=== PATIENT | female | born 1990 | race Caucasian/White ===

== ENCOUNTER 2022-11-30 15:18 | Emergency (ER) | payer BC, SELFPAY ==
--- NOTE | 2022-11-30 15:18 | ECG_ITS ---
APPROVED REPORT Exam: Resting ECG HR:79 bpm ECG Measurements Heart Rate 79 AXES UT 153 P 71 QRSd 81 QRS 71 QT 359 T 33 QTc 393 Conclusion SINUS RHYTHM POSSIBLE LEFT ATRIAL ENLARGEMENT [-0.1mV P-WAVE IN V1/V2] NONSPECIFIC T-WAVE ABNORMALITY BORDERLINE ECG UNCONFIRMED REPORT Electronically signed by : Eze Rodriguez MD 12/01/2022 21:27:29
[2022-11-30 15:20] VITALS: BP 118/72; PULSE 75; RESP 17; TEMP 36.6; O2SAT 98; BMI 17.4
[2022-11-30 15:30] VITALS: BP 100/70
--- NOTE | 2022-11-30 15:30 | HMH.EDGENADL ---
Discharge Plan Disposition Patient Disposition: Home, Self-Care Prescriptions Prescriptions: New hydroxyzine pamoate [Vistaril] 25 mg capsule 25 mg PO Q6H PRN (Reason: anxiety) Qty: 30 0RF Referrals Follow up/Referrals: Anne Blair MD [Primary Care Provider] - See instructions Activity Restrictions/Add. Instructions Additional Instructions/Restrictions: Call your family doctor to establish care for this visit to the emergency department and schedule follow-up within 48 hours to ensure improvement. If you have any worsening of your condition or any other concerning signs or symptoms, return to the emergency department or your primary care doctor for further evaluation. 1-2 Vistaril every 6 hours as needed for anxiety. Can make you sleepy, so be aware and do not engage in activities and cause harm to you or others after taking. Clinical Impressions Clinical Impression: Palpitations, Chest pain Discharge ED Provider: Akash Segura General Adult HPI General Stated complaint: Chest Pain Time Seen by Provider: 11/30/22 15:23 History of Present Illness HPI narrative: 32-year-old female history of palpitations and panic attacks currently on metoprolol presenting with palpitations and chest pain. Patient states that symptoms happened 1 night prior to arrival on 11/29. Patient was sitting in her workplace when she started having palpitations. This turned into chest pain that did not radiate, substernal. This caused patient to hit my knees and my hands and arms mariana up. Denies nausea, vomiting, diaphoresis, or any other concerns. Has cardiology appointment in January. Related Data Previous Rx's Medication Instructions Recorded hydroxyzine pamoate 25 mg capsule 25 mg PO Q6H PRN anxiety #30 caps 11/30/22 (Vistaril) Allergies Allergy/AdvReac Type Severity Reaction Status Date / Time No Known Allergies Allergy Verified 11/30/22 16:36 [facility] Disclaimer: The information contained in this section may have been updated after the patient was seen, as this information can be updated by other users. Social History Smoking Status: Unknown if ever smoked alcohol intake: never current occupational status: employed Travel in the last 8 weeks: None ROS Obtained: Yes All systems reviewed & no additional complaints except as documented Physical Exam General General appearance: alert and in no apparent distress Head Head exam: atraumatic and normocephalic Eye Eye exam: Present normal appearance, PERRL and EOMI ENT ENT exam: Present mucous membranes moist Neck Neck exam: Present normal inspection, full ROM and trachea midline Respiratory Respiratory exam: Present normal lung sounds bilaterally; Absent respiratory distress, wheezes, stridor, accessory muscle use or prolonged expiratory phase Cardiovascular Cardiovascular exam: Present regular rate and normal rhythm Abdominal Exam Abdominal exam: Present soft; Absent distention, tenderness, guarding, rebound, rigidity or normal bowel sounds Extremities Exam Extremities exam: Absent edema Neurological Exam Neurological exam: Present alert, oriented X3, CN II-XII intact and normal gait; Absent motor sensory deficit Skin Skin exam: Present warm and dry; Absent diaphoresis or erythema Medical Decision Making Medical Records Medical records reviewed: Yes I reviewed the patient's medical records. Nguyễn Inquiry Pt receiving controlled substance: No Nguyễn was queried for this patient: No Lab Data Lab Results 11/30/22 15:20: WBC 5.3, RBC 4.33, Hgb 14.3, Hct 40.0, MCV 92.4, MCH 33.0 H, MCHC 35.7 H, RDW 12.7, Plt Count 186, MPV 8.2, Neut % (Auto) 57.7, Lymph % (Auto) 32.8, [place] % (Auto) 5.2, Eos % (Auto) 3.2, Baso % (Auto) 1.0, Neut # (Auto) 3.0, Lymph # (Auto) 1.7, [place] # (Auto) 0.3, Eos # (Auto) 0.2, Baso # (Auto) 0.1, Sodium 139, Potassium 3.8, Chloride 106, Carbon Dioxide 26, Anion Gap 10.8, BUN 11, Creatinine 0.60, Estimated GFR 117, Est GFR
[2022-11-30 15:41] LABS: Basophils # 0.1 K/mm3 (0-0.2); Eosinophils # 0.2 K/mm3 (0.0-0.4); Eosinophils % 3.2 % (0.1-12.0); Hemoglobin 14.3 g/dL (12.2-16.2); Lymphocytes # 1.7 K/mm3 (0.7-4.5); Lymphocytes % 32.8 % (10-50); Mean Corpuscular HGB Conc 35.7 g/dL (31.8-35.4); Mean Corpuscular Volume 92.4 fl (81-99); Mean Platelet Volume 8.2 fl (7.4-10.4); Monocytes # 0.3 K/mm3 (0.1-1.0); Monocytes % 5.2 % (1.7-9.3); Neutrophils % 57.7 % (37.0-80.0); Platelet Count 186 K/mm3 (142-424); Red Blood Count 4.33 M/mm3 (4.20-5.40); Red Cell Distribution Width 12.7 % (11.5-17.5); White Blood Count 5.3 K/mm3 (4.8-10.8)
[2022-11-30 15:44] LABS: Chloride 106 mmol/L (98-107); Potassium 3.8 mmoL/L (3.5-5.1); Sodium 139 mmol/L (136-145)
[2022-11-30 15:47] LABS: Alanine Aminotransferase 18 U/L (12-78); Albumin Level 4.5 g/dl (3.5-5.0); Albumin/Globulin Ratio 1.7 (1.1-1.8); Alkaline Phosphatase 61 U/L (38-126); Anion Gap 10.8 mEq/L (5-15); Aspartate Amino Transferase 27 U/L (14-36); Bilirubin,Total 0.5 mg/dl (0.2-1.3); Blood Urea Nitrogen 11 mg/dl (7-17); Calcium 8.7 mg/dl (8.4-10.2); Carbon Dioxide 26 mmol/L (22.0-30.0); Estimated Glomerular Filt Rate 117 ml/min (>60); GFR (African American) 142 ML/MIN (>60); Globulin 2.7 g/dL (1.3-3.2); Glucose 106 mg/dl (74-100); Total Protein,Serum 7.2 g/dl (6.3-8.2)
[2022-11-30 16:00] VITALS: BP 96/65
[2022-11-30 16:04] LABS: Troponin I < 0.01 ng/ml (0.00-0.034)
[2022-11-30 16:06] LABS: HCG,Quantitative < 2 mIU/ml (0-5.42); T4 (Thyroxine) 7.8 ug/dl (5.53-11.0)
[2022-11-30 16:18] LABS: Thyroid Stimulating Hormone 0.73 uIU/mL (0.465-4.68)
[2022-11-30 16:30] VITALS: BP 97/64; PULSE 77; RESP 19; O2SAT 99
[2022-11-30 16:44] VITALS: PULSE 75
[2022-11-30 16:56] VITALS: BP 99/64; PULSE 78; RESP 17; TEMP 36.6; O2SAT 98
== END 2022-11-30 16:57 | disposition home or self-care (01) ==
PROVIDERS: Emergency Provider Emergency Medicine; PCP Family Medicine
DX: R07.9 Chest pain, unspecified (principal); R00.2 Palpitations; F41.1 Generalized anxiety disorder
CPT/HCPCS: 80053; 84436; 84443; 84484; 84702; 85025; 93005; 99283

== ENCOUNTER 2023-03-08 11:25 | Emergency (ER) | payer BC, SELFPAY ==
[2023-03-08 12:00] VITALS: BP 127/68; PULSE 112; RESP 18; TEMP 37.7; O2SAT 98; BMI 19.5
--- NOTE | 2023-03-08 12:07 | EXP.UTC ---
Discharge Plan Disposition Patient Disposition: Home, Self-Care Condition: Good Prescriptions Prescriptions: New oseltamivir [Tamiflu] 75 mg capsule 75 mg PO BID Qty: 10 0RF ondansetron 4 mg Tablet,Disintegrating 4 mg PO Q8H PRN (Reason: Nausea) Qty: 12 0RF benzonatate [benzonatate] 100 mg capsule 100 mg PO TIDP PRN (Reason: Cough) Qty: 30 0RF No Action metoprolol succinate 25 mg tablet extended release 24 hr 25 mg PO DAILY Patient Comments: TAKE 1 TABLET BY MOUTH ONCE DAILY Referrals Follow up/Referrals: Anne Blair MD [Primary Care Provider] - See instructions Activity Restrictions/Add. Instructions Additional Instructions/Restrictions: Drink plenty of fluids. Take tylenol or ibuprofen for pain or fever. Take the medications as directed. Follow up with your regular doctor. GO TO THE ER FOR ANY WORSENING SYMPTOMS Clinical Impressions Clinical Impression: Influenza B Stand Alone Forms Stand Alone Forms: Work/School Release Instructions Patient Instructions: DI for Influenza -- Adult, Ondansetron, Oseltamivir Discharge ED Provider: Osman Ivey [facility] General Stated complaint: cough, fever, nausea, diarrea, body aches, fermín Time Seen by Provider: 03/08/23 12:07 History of Present Illness Provider Complaint: She states that for the past 2 days she has had fever, chills, body aches, malaise, sore throat, nausea and a dry cough. Her tested positive for influenza b about 5 days ago. Related Data Home Medications Medication Instructions Recorded Confirmed metoprolol succinate 25 mg 25 mg PO DAILY 03/08/23 03/08/23 tablet,extended release 24 hr Previous Rx's Medication Instructions Recorded benzonatate 100 mg capsule 100 mg PO TIDP PRN Cough #30 caps 03/08/23 ondansetron 4 mg disintegrating 4 mg PO Q8H PRN Nausea #12 tabs 03/08/23 tablet oseltamivir 75 mg capsule (Tamiflu) 75 mg PO BID #10 caps 03/08/23 Allergies Allergy/AdvReac Type Severity Reaction Status Date / Time No Known Allergies Allergy Verified 03/08/23 12:19 [facility] Disclaimer: The information contained in this section may have been updated after the patient was seen, as this information can be updated by other users. Social History Smoking Status: Unknown if ever smoked alcohol intake: never current occupational status: employed Travel in the last 8 weeks: None ROS Obtained: Yes All systems reviewed & no additional complaints except as documented Constitutional Constitutional: Reports chills and Reports fever(s) Eyes Eyes: Denies eye discharge ENT Ears, Nose, Mouth, and Throat: Reports as per HPI Cardiovascular Cardiovascular: Denies chest pain Respiratory Respiratory: Denies chest congestion and Reports cough Gastrointestinal Gastrointestingal: Reports nausea; Denies abdominal pain, constipation, cramping, diarrhea or vomiting Musculoskeletal Musculoskeletal: Denies arthralgias Integumentary/Breasts Skin/Breast: Denies rash Neurologic Neurologic: Denies paresthesias Physical Exam General General appearance: alert and in no apparent distress Head Head exam: atraumatic, normocephalic and normal inspection Eye Eye exam: Present normal appearance, PERRL and EOMI ENT ENT exam: Present normal exam, normal oropharynx, mucous membranes moist, TM's normal bilaterally and normal external ear exam Neck Neck exam: Present normal inspection, full ROM and trachea midline; Absent meningismus or lymphadenopathy Chest Chest inspection: Present normal inspection and symmetric chest wall rise; Absent tenderness Respiratory Respiratory exam: Present normal lung sounds bilaterally; Absent respiratory distress Cardiovascular Cardiovascular exam: Present regular rate and normal rhythm; Absent JVD Abdominal Exam Abdominal exam: Present soft and normal bowel sounds; Absent distention, tenderness or guarding Extremities Exam Extremities exam: Present normal inspection, full ROM and normal capillary refill; Absent calf tenderness Back Exam Back exam: Present normal inspection; Absent tenderness Neurological Exam Neurological exam: Present alert and oriented X3 Psychiatric Psychiatric exam: Present normal affect and normal mood Skin Skin exam: Present warm, dry, intact and normal color Lymphatic Lymphatic Findings: no adenopathy Medical Decision Making Medical Records Medical records reviewed: No I reviewed the patient's medical records. Nguyễn Inquiry Pt receiving controlled substance: No Lab Data Lab results reviewed: Yes I reviewed the patient's lab results.
[2023-03-08 12:24] LABS: UTC Influenza A Antigen Negative (Negative)
[2023-03-08 12:25] LABS: UTC Influenza B Antigen Positive (Negative)
[2023-03-08 12:37] VITALS: BP 127/68; PULSE 112; RESP 18; TEMP 37.7; O2SAT 98
== END 2023-03-08 12:37 | disposition home or self-care (01) ==
PROVIDERS: Emergency Provider Nurse Practitioner Family; PCP Family Medicine
DX: J10.1 Influenza due to other identified influenza virus with other respiratory manifestations (principal); R50.9 Fever, unspecified; R05.9 Cough, unspecified; R11.0 Nausea; R19.7 Diarrhea, unspecified; M79.18 Myalgia, other site; R53.81 Other malaise
CPT/HCPCS: 87804; 99204; 99212; G0463

== ENCOUNTER 2023-03-16 14:39 | Emergency (ER) | payer BC, SELFPAY ==
[2023-03-16 15:50] VITALS: BP 117/76; PULSE 94; RESP 18; TEMP 36.8; O2SAT 99; BMI 17.7
--- NOTE | 2023-03-16 16:00 | EXP.UTC ---
Discharge Plan Disposition Patient Disposition: Home, Self-Care Condition: Good Prescriptions Prescriptions: New azithromycin [Zithromax Z-Arthur] 250 mg tablet See Rx Instructions .ROUTE .COMPLEX 5 Days Qty: 6 0RF Rx Instructions: For 250 mg dose pack: take 500 mg today (day 1), then 250 mg for 4 days (days 2-5) guaifenesin [Mucinex] 600 mg tablet extended release 12hr 600 mg PO BID PRN (Reason: cough) Qty: 20 0RF No Action metoprolol succinate 25 mg tablet extended release 24 hr 25 mg PO DAILY Patient Comments: TAKE 1 TABLET BY MOUTH ONCE DAILY Referrals Follow up/Referrals: Provider,Referral, MD [Primary Care Provider] - See instructions Activity Restrictions/Add. Instructions Additional Instructions/Restrictions: *Monitor Temp, Over the counter Motrin or Tylenol as directed/as needed Tylenol every 4 hours and Motrin every 6 hours (as long as your family doctor has told you that you can take it) for fever or pain. and straight to ER if unable to lower temp less than 101.0 after medication given *Warm salt water gargles may help to soothe the throat *Throat Lozenges? *Warm fluids like tea with honey may help to soothe the throat? *Sleep elevated *Humidifier/Vaporizer Your throat swab was sent for culture. Those results are typically sent to your primary care. Be sure to follow up in 2-3 days with your family doctor/primary care physician if no improvement so they can review those result and treat if necessary. If you don?t have a primary care doctor, I recommend you get one but in the mean time, you will have to return to a walk in clinic Follow up IMMEDIATELY for new or worsening symptoms or no Noticeable improvement over the next 48-72 hours. 911 for difficulty breathing or swallowing Clinical Impressions Clinical Impression: Sinusitis Qualifiers: Sinusitis location: unspecified location Chronicity: unspecified Qualified Code(s): J32.9 - Chronic sinusitis, unspecified Instructions Patient Instructions: DI for Sinusitis, Sinusitis, Cough Discharge ED Provider: Bethanie Gongora [facility] General Stated complaint: sore throat, congestion Time Seen by Provider: 03/16/23 16:00 History of Present Illness Provider Complaint: Patient states that a week or so ago she had the flu States she got better but now she has been having sinus congestion and pressure, cough that is productive at times, sore throat and headache states that today she wasnt feeling any better so she came in Related Data Home Medications Medication Instructions Recorded Confirmed metoprolol succinate 25 mg 25 mg PO DAILY 03/08/23 03/16/23 tablet,extended release 24 hr Previous Rx's Medication Instructions Recorded azithromycin 250 mg tablet See Rx Instructions PO .COMPLEX 5 03/16/23 (Zithromax Z-Arthur) days #6 tabs guaifenesin 600 mg tablet, 600 mg PO BID PRN cough #20 tabs 03/16/23 extended release 12 hr (Mucinex) Allergies Allergy/AdvReac Type Severity Reaction Status Date / Time No Known Allergies Allergy Verified 03/16/23 16:12 [facility] Disclaimer: The information contained in this section may have been updated after the patient was seen, as this information can be updated by other users. Social History Smoking Status: Unknown if ever smoked alcohol intake: never current occupational status: employed Travel in the last 8 weeks: None ROS Obtained: Yes All systems reviewed & no additional complaints except as documented and Yes Systems reviewed as appropriate & no additional complaints except as documented Constitutional Constitutional: Reports system reviewed and no additional complaints, except as documented, Reports as per HPI and Reports headache(s) ENT Ears, Nose, Mouth, and Throat: Reports system reviewed and no additional complaints, except as documented, Reports headache(s), Reports sinus pain, Reports sinus pressure and Reports sore throat Cardiovascular Cardiovascular: Reports system reviewed and no additional complaints, except as documented and Reports as per HPI Respiratory Respiratory: Reports system reviewed and no additional complaints, except as documented, Reports as per HPI and Reports cough Gastrointestinal Gastrointestingal: Reports system reviewed and no additional complaints, except as documented and as per HPI Neurologic Neurologic: Reports headache(s) Physical Exam General General appearance: alert and in no apparent distress ENT ENT exam: Present mucous membranes moist Expanded ENT Exam Nose exam: Present sinus tenderness Throat exam: Present tonsillar erythema Respiratory Respiratory exam: Present normal lung sounds bilaterally; Absent respiratory distress or wheezes Cardiovascular Cardiovascular exam: Present regular rate, normal rhythm and normal heart sounds Abdominal Exam Abdominal exam: Present soft and normal bowel sounds; Absent distention or tenderness Neurological Exam Neurological exam: Present alert, oriented X3 and normal gait Medical Decision Making Nguyễn Inquiry Pt receiving controlled substance: No Nguyễn was queried for this patient: No Lab Data Lab results reviewed: Yes I reviewed the patient's lab results.
[2023-03-16 16:29] LABS: UTC Strep Screen (Rapid) Negative (Negative)
[2023-03-16 16:40] VITALS: BP 117/76; PULSE 94; RESP 18; TEMP 36.8; O2SAT 99
== END 2023-03-16 16:40 | disposition home or self-care (01) ==
PROVIDERS: Emergency Provider Nurse Practitioner
DX: J01.90 Acute sinusitis, unspecified (principal); R05.9 Cough, unspecified; R51.9 Headache, unspecified; R07.0 Pain in throat; R09.81 Nasal congestion
CPT/HCPCS: 87880; 99212; 99214; G0463

== ENCOUNTER 2024-01-11 11:24 | Emergency (ER) | payer BC, SELFPAY ==
[2024-01-11 11:40] VITALS: BP 119/70; PULSE 94; RESP 20; TEMP 37; O2SAT 99; BMI 19.8
--- NOTE | 2024-01-11 12:03 | EXP.UTC ---
Discharge Plan Disposition Patient Disposition: Home, Self-Care Condition: Good Prescriptions Prescriptions: New ciprofloxacin-dexamethasone 0.3-0.1 % drops,suspension 4 drp otic (ear) Q12H 7 Days Qty: 7.5 0RF Referrals Follow up/Referrals: Anne Blair MD [Primary Care Provider] - See instructions Activity Restrictions/Add. Instructions Additional Instructions/Restrictions: Use drops in left ear as directed Over the counter Motrin and/or Tylenol for fever or pain Follow up with ENT for further evaluation and treatment Return if needed Clinical Impressions Clinical Impression: Otitis externa Instructions Patient Instructions: Ciprofloxacin and Dexamethasone Otic Print Language Print Language: Croatian Discharge ED Provider: Bethanie Gongora [facility] HPI General Stated complaint: Pain in both ears Mode of Arrival: Ambulatory Source of Information: Patient Limitations: No Limitations Time Seen by Provider: 01/11/24 12:03 Description of Symptoms (Recalled from Triage Doc. by RN): PATIENT C/O BILATERAL EAR PAIN HEENT Symptoms (Recalled from RN notes): Yes Resp Symptoms (Recalled from RN notes): No Skin Symptoms (Recalled from RN notes): No MS Symptoms (Recalled from RN notes): No Functional Status (Recalled from RN notes): WNL History of Present Illness Provider Complaint: Patient states that she has been having bilateral ear pain States that she feels like the inside of her ear is tender and sore States today her ears was feeling worse so she came in Related Data Previous Rx's ?Medication ?Instructions ?Recorded ciprofloxacin 0.3 %-dexamethasone 4 drp otic (ear) Q12H 7 days #7.5 01/11/24 0.1 % ear drops,suspension mL Allergies Allergy/AdvReac Type Severity Reaction Status Date / Time No Known Allergies Allergy Verified 03/16/23 16:12 Worker's Comp Is this a Worker's Comp case?: No [facility] Disclaimer: The information contained in this section may have been updated after the patient was seen, as this information can be updated by other users. Medical History (Updated 01/11/24 @ 12:09 by Bethanie Gongora APRN) Anemia Depression Anxiety Surgical History (Updated 01/11/24 @ 11:47 by Pati Barker RN) History of tubal ligation History of hysterectomy Social History Smoking Status: Unknown if ever smoked alcohol intake: never current occupational status: employed Travel in the last 8 weeks: None ROS Obtained: Yes All systems reviewed & no additional complaints except as documented and Yes Systems reviewed as appropriate & no additional complaints except as documented Constitutional Constitutional: Reports system reviewed and no additional complaints, except as documented and Reports as per HPI Eyes Eyes: Reports system reviewed and no additional complaints, except as documented and Reports as per HPI ENT Ears, Nose, Mouth, and Throat: Reports system reviewed and no additional complaints, except as documented, Reports as per HPI and Reports otalgia Cardiovascular Cardiovascular: Reports system reviewed and no additional complaints, except as documented and Reports as per HPI Respiratory Respiratory: Reports system reviewed and no additional complaints, except as documented and Reports as per HPI Gastrointestinal Gastrointestingal: Reports system reviewed and no additional complaints, except as documented and as per HPI Genitourinary Female Genitourinary: Reports system reviewed and no additional complaints, except as documented and Reports as per HPI Physical Exam General General appearance: alert and in no apparent distress ENT ENT exam: Present mucous membranes moist Expanded ENT Exam External ear exam: Present pain with movement (left) and external tenderness (left) TM/Canal exam: Right TM: cerumen impaction (coupious amount of wax noted, wax noted in left also) Respiratory Respiratory exam: Present normal lung sounds bilaterally; Absent respiratory distress or wheezes Cardiovascular Cardiovascular exam: Present regular rate, normal rhythm and normal heart sounds Neurological Exam Neurological exam: Present alert, oriented X3 and normal gait Medical Decision Making Medical Records Screening: Per USPSTF and CDC recommendations, given the prevalence of disease in our region, it is our hospital?s policy to screen for HIV and viral Hepatitis for all patients aged 18 and over and those with ongoing risk factors. Nguyễn Inquiry Pt receiving controlled substance: No Nguyễn was queried for this patient: No Vital Signs: 01/11/24 11:40 Temperature 98.6 F Temperature Source Oral Pulse Rate [Left Brachial] 94 H Respiratory Rate 20 Blood Pressure [Left Arm] 119/70 Blood Pressure Mean [Left Arm] 86 Blood Pressure Source [Left Arm] Automatic Cuff Blood Pressure Position [Left Arm] Sitting 02 Sat by Pulse Oximetry 99 Oxygen Delivery Method Room Air
[2024-01-11 12:14] VITALS: BP 119/70; PULSE 94; RESP 20; TEMP 37; O2SAT 99
== END 2024-01-11 12:23 | disposition home or self-care (01) ==
PROVIDERS: Emergency Provider Nurse Practitioner; PCP Family Medicine
DX: H60.93 Unspecified otitis externa, bilateral (principal)
CPT/HCPCS: 99213; G0381

== ENCOUNTER 2024-02-08 11:51 | Emergency (ER) | payer BC, SELFPAY ==
[2024-02-08 11:52] VITALS: BP 111/75; PULSE 81; RESP 18; TEMP 36.8; O2SAT 99; BMI 20.3
--- NOTE | 2024-02-08 11:58 | ECG_ITS ---
APPROVED REPORT Exam: Resting ECG HR:86 bpm ECG Measurements Heart Rate 86 AXES HI 136 P 64 QRSd 94 QRS 49 QT 347 T 11 QTc 390 Conclusion SINUS RHYTHM NONSPECIFIC T-WAVE ABNORMALITY BORDERLINE ECG UNCONFIRMED REPORT Electronically signed by : Osman Ibarra, 02/08/2024 15:34:04
--- NOTE | 2024-02-08 12:07 | ED_ITS ---
<Statement entered by Jamie Ibarra MD - 02/08/24 15:30> I was consulted by the YUN, and we discussed the complexity of the problems being addressed. I approved the treatment and management plan for this patient's care in the emergency department, thus performing a substantive portion of the medical decision making. Jamie Ibarra MD, KORY, FACEP Discharge Plan Disposition Patient Disposition: Home, Self-Care Condition: Good Chief Complaint: Chest Pain Prescriptions Prescriptions: No Action ofloxacin 0.3 % drops 10 drp otic (ear) Q12H 14 Days Qty: 20 0RF Rx Instructions: to left ear as directed Referrals Follow up/Referrals: Anne Blair MD [Primary Care Provider] - See instructions Activity Restrictions/Add. Instructions Additional Instructions/Restrictions: I would suggest taking a ntha-umz-omjoehp magnesium tablet once a day. I have referred you to cardiology. Please call and make an appointment at your convenience. Follow-up with your PCP for no improvement or worsening signs or symptoms or return to the ER as needed. Clinical Impressions Clinical Impression: Postural orthostatic tachycardia syndrome [POTS] Chest pain Qualifiers: Chest pain type: unspecified Qualified Code(s): R07.9 - Chest pain, unspecified Print Language Print Language: Romansh Discharge ED Provider: Jamie Ibarra General Adult HPI General Chief complaint: Chest Pain Stated complaint: chest pain Time Seen by Provider: 02/08/24 12:07 History of Present Illness HPI narrative: Patient presents for evaluation of chest pain. Patient has a known diagnosis of POTS syndrome and follows with Dr. Castañeda at [facility]. She does have intermittent chest pain with associated tachycardia intermittently since her diagnosis. However today patient's episode began while walking and was not related to a change in position. She did note that her heart rate was very fast although she did not count it. Patient also stated that she felt like her fingers were tingling or numb sometime after this started. However it resolved by the time she came to the ER. Patient had been on a beta-bhumi until about 3 months ago and she self discontinued because she was having a heart rate down to the 40s and symptomatic. She has not followed up with cardiology since. She denies any recent illness shortness of breath fever chills hemoptysis hematochezia melena nausea vomit diarrhea. Related Data Previous Rx's ?Medication ?Instructions ?Recorded ofloxacin 0.3 % ear drops 10 drp otic (ear) Q12H 14 days #20 01/11/24 mL Allergies Allergy/AdvReac Type Severity Reaction Status Date / Time No Known Allergies Allergy Verified 03/16/23 16:12 [facility] Disclaimer: The information contained in this section may have been updated after the patient was seen, as this information can be updated by other users. Medical History (Updated 02/08/24 @ 13:06 by SERAFIN Alvarado) Anemia Depression Anxiety Surgical History (Updated 01/11/24 @ 11:47 by Pati Barker RN) History of tubal ligation History of hysterectomy Social History Smoking Status: Never smoker alcohol intake: never current occupational status: employed Travel in the last 8 weeks: None Have you lived/traveled outside US in past 30 days?: No Contact w/someone who lives/traveled outside US past 30 days?: No Exposure to someone with infectious disease in past 14 days?: No Do you have a fever (greater than 100.4 F or 38 C)?: No Have you tested positive for COVID-19: No Exposed to someone with COVID-19 in past 14 days?: No Do you have a sore throat?: No Do you have a cough?: No Do you have any weakness?: No Do you have any diarrhea?: No Are you experiencing any unusual bleeding?: No Do you have any muscle aches/pain?: No Do you have any abdominal pain?: No Are you experiencing loss of taste or smell?: No ROS Obtained: Yes Systems reviewed as appropriate & no additional complaints except as documented Physical Exam General General appearance: alert and in no apparent distress Respiratory Respiratory exam: Present normal lung sounds bilaterally Cardiovascular Cardiovascular exam: Present regular rate Neurological Exam Neurological exam: Present alert and oriented X3 Medical Decision Making Medical Records Medical records reviewed: Yes I reviewed the patient's medical records. Screening: Per USPSTF and CDC recommendations, given the prevalence of disease in our region, it is our hospital?s policy to screen for HIV and viral Hepatitis for all patients aged 18 and over and those with ongoing risk factors. Nguyễn Inquiry Pt receiving controlled substance: No Vital Signs: 02/08/24 11:52 02/08/24 12:30 Temperature 98.3 F Temperature Source Oral Pulse Rate 80 Pulse Rate [Right] 81 Respiratory Rate 18 Blood Pressure 107/65 L Blood Pressure [Right Arm] 111/75 Blood Pressure Mean [Right Arm] 87 02 Sat by Pulse Oximetry 99 98 Oxygen Delivery Method Room Air Lab Data Lab results reviewed: Yes I reviewed the patient's lab results. Lab Results 02/08/24 11:55: WBC 7.6, RBC 4.54, Hgb 14.0, Hct 40.8, MCV 89.9, MCH 30.8, MCHC 34.3, RDW 12.1, Plt Count 239, MPV 10.1, Neut % (Auto) 63.4, Lymph % (Auto) 23.2, Steele % (Auto) 4.7, Eos % (Auto) 7.0, Baso % (Auto) 1.2, Neut # (Auto) 4.8, Lymph # (Auto) 1.8, Steele # (Auto) 0.4, Eos # (Auto) 0.5 H, Baso # (Auto) 0.1, Sodium 138, Potassium 3.6, Chloride 103, Carbon Dioxide 30, Anion Gap 8.6, BUN 15, Creatinine 0.60, Estimated Creat Clear 112, Estimated GFR 117, Est GFR ( Amer) 141, Glucose 73 L, Calcium 9.8, Magnesium 1.8, Total Bilirubin 0.7, AST 28, ALT 14, Alkaline Phosphatase 68, Troponin I < 0.01, Total Protein 7.5, Albumin 4.9, Globulin 2.6, Albumin/Globulin Ratio 1.9 H 02/08/24 12:18: VBG pH 7.31, VBG pCO2 51.0, VBG pO2 28.9, VBG HCO3 24.9, VBG Total CO2 26.4, VBG O2 Saturation 52.0, VBG Base Excess -1.5, VBG Lactic Acid 1.6 02/08/24 11:55 02/08/24 11:55 Orders (Tests/Meds): ORDERS Category Date Time Status CBC w/Auto Diff [Complete Blood Count Auto Diff] Stat Lab 02/08/24 11:55 Completed CMP [Comprehensive Metabolic Panel] Stat Lab 02/08/24 11:55 Completed HIV Combo Stat Lab 02/08/24 11:55 Received Hep C Ab with Reflex to RNA Stat Lab 02/08/24 12:09 Ordered Magnesium Stat Lab 02/08/24 11:55 Completed Thyroid Panel Stat Lab 02/08/24 11:55 Received Trop I [Troponin I] Stat Lab 02/08/24 11:55 Completed Troponin I Q3H Lab 02/08/24 15:30 Ordered Troponin I Q3H Lab 02/08/24 18:30 Ordered VBG [Venous Blood Gas] Stat RT 02/08/24 12:18 Completed HEART Score History (anamnesis): Slightly suspicious ECG: Normal Age: <45 years Risk factors: 1-2 risk factors Troponin: </= normal limit HEART Score: 1 Medical Decision Narrative: In summary patient is a 33-year-old female who presents to the emergency department for evaluation of chest pain. Patient is hemodynamically stable upon arrival, afebrile. Physical exam is unremarkable and nonfocal including normal breath sounds normal heart sounds what appears to be normal sinus rhythm on the bedside monitor. Patient has full range of motion in her upper extremities Handy Coma Score 15 patient is awake alert and oriented to person place and circumstance cranial nerves II through XII are intact listed exam.. Differential diagnosis includes POTS syndrome versus electrolyte abnormality versus hyperventilation etc. Initial workup will be conducted with hematologic labs twelve-lead EKG VBG. Initial interventions were considered however patient is asymptomatic currently thus deferred for now. Initial workup reviewed by me and her hematologic labs are nonactionable including a negative troponin her magnesium however is 1.8 which is within the normal range but below 2. Upon repeat evaluation patient remains asymptomatic. Given this I had interactive discussion with the patient regarding her findings and the recommendations and via patient directed decision making and discharge patient is comfortable with going home after reassurance that we have ruled out any serious or life- threatening condition and would like a referral to a different bridge crew member. Thus patient is ready for discharge with referral to cardiology group. [facility]. Critical Care Critical Care Time Critical Care Time: No
[2024-02-08 12:24] LABS: Basophils # 0.1 K/mm3 (0-0.2); Basophils % 1.2 % (0.1-2.0); Eosinophils # 0.5 K/mm3 (0.0-0.4); Hematocrit 40.8 % (37.0-47.0); Lymphocytes # 1.8 K/mm3 (0.7-4.5); Lymphocytes % 23.2 % (10-50); Mean Corpuscular HGB Conc 34.3 g/dL (31.8-35.4); Mean Corpuscular Hemoglobin 30.8 pg (27.0-31.2); Mean Corpuscular Volume 89.9 fl (81-99); Mean Platelet Volume 10.1 fl (7.4-10.4); Monocytes # 0.4 K/mm3 (0.1-1.0); Monocytes % 4.7 % (1.7-9.3); Neutrophils # 4.8 K/mm3 (1.8-7.8); Neutrophils % 63.4 % (37.0-80.0); Platelet Count 239 K/mm3 (142-424); Red Blood Count 4.54 M/mm3 (4.20-5.40); Red Cell Distribution Width 12.1 % (11.5-17.5); White Blood Count 7.6 K/mm3 (4.8-10.8)
[2024-02-08 12:30] VITALS: BP 107/65; PULSE 80; O2SAT 98
[2024-02-08 12:30] LABS: Alanine Aminotransferase 14 U/L (12-78); Albumin Level 4.9 g/dl (3.5-5.0); Albumin/Globulin Ratio 1.9 (1.1-1.8); Alkaline Phosphatase 68 U/L (38-126); Anion Gap 8.6 mEq/L (5-15); Aspartate Amino Transferase 28 U/L (14-36); Bilirubin,Total 0.7 mg/dl (0.2-1.3); Blood Urea Nitrogen 15 mg/dl (7-17); Calcium 9.8 mg/dl (8.4-10.2); Carbon Dioxide 30 mmol/L (22.0-30.0); Chloride 103 mmol/L (98-107); Creatinine Clearance Estimated 112 mL/min (50-200); Estimated Glomerular Filt Rate 117 ml/min (>60); GFR (African American) 141 ML/MIN (>60); Globulin 2.6 g/dL (1.3-3.2); Glucose 73 mg/dl (74-100); Magnesium 1.8 mg/dl (1.6-2.3); Potassium 3.6 mmoL/L (3.5-5.1); Sodium 138 mmol/L (136-145); Total Protein,Serum 7.5 g/dl (6.3-8.2)
[2024-02-08 12:33] LABS: Lactate Venous 1.6 mmol/L (0.4-2.0); VBG Base Excess -1.5 mmol/L (-2.4-2.3); VBG HCO3 24.9 mmol/L (23-30); VBG PH 7.31 mmol/L (7.31-7.41); VBG PO2 28.9 mmol/L (28-40); VBG Total CO2 26.4 mmol/L (23-27)
[2024-02-08 12:42] LABS: Troponin I < 0.01 ng/ml (0.00-0.034)
[2024-02-08] MEDS: MAGNESIUM OXIDE 400MG TABLET 400 MG PO (13:17)
[2024-02-08 13:19] LABS: Triiodothryronine (T3) Uptake 28 % (23.5-40.5)
[2024-02-08 13:20] VITALS: BP 99/72; PULSE 80; PULSE 82; RESP 20; TEMP 36.8; O2SAT 95
[2024-02-08 13:20] LABS: Free Thyroxine Index 2.2 ug/dL (5.93-13.13); T4 (Thyroxine) 7.9 ug/dl (5.53-11.0)
[2024-02-08 13:33] LABS: Thyroid Stimulating Hormone 0.66 uIU/mL (0.465-4.68)
[2024-02-08 13:36] LABS: HIV Combo NEGATIVE (Negative)
[2024-02-09 05:53] LABS: HCV Ab Non Reactive (Non Reactive)
== END 2024-02-08 13:22 | disposition home or self-care (01) ==
PROVIDERS: Physician Assistant; Emergency Provider Student in an Organized Health Care Education/Training Program; PCP Family Medicine
DX: G90.A Postural orthostatic tachycardia syndrome [POTS] (principal); R07.9 Chest pain, unspecified; R20.2 Paresthesia of skin
CPT/HCPCS: 80053; 82803; 83735; 84436; 84443; 84479; 84484; 85025; 86803; 87389; 93005; 99283

== ENCOUNTER 2024-12-29 16:08 | Outpatient (CLI) | payer BC, SELFPAY ==
--- OUTSIDE RECORDS SUMMARY | 2024-12-30 10:49 | XMS_ITS | Encounter Summary ---
[facility] Organization [facility] Address [address] [place] [address] Care Team Providers Care Unisaw Operator Name Role Phone Anne Blair DO Primary Care Provider Reason for Visit * Reason Onset Date Comments My chart/ referral 10/01/2024 Encounter Details Date Type Department Care Team (Late st Contact Info) Description 10/01/2024 Telephone [facility] [address] [facility] [place] [place] [address] Channing Moss PA [address] [facility] [place] [address] My chart/ referral Social History Tobacco Use Types Packs/Day Years Used Date Smoking Tobacco: Every Day Electronic Cigarette Passive Smoke Exposure: Past Smokeless Tobacco: Never Comments:Vapes Alcohol Use Standard Drinks/Week Comments Never 0 (1 standard drink = 0.6 oz pur e alcohol) AUDIT-C Answer Date Recorded Q1: How often do you have a drink containing alc ohol? Never 03/30/2020 Average Number of Drinks Not on file 021 Frequency of Binge Drinking Not on file 03/10 PHQ-2 Answer Date Recorded Retired PHQ-9: Brief Depression Severity Measure Score 9 11/02/2022 PHQ-2 Answer Date Recorded Patient Health Questionnaire-9 Score 8 03/12/2024 Comments No Sex and Gender Information Value Date Recorded Sex Assigned at Female 03/27/2024 10:47 AM EST Legal Sex Female 2:52 PM EST Gender Identity Not on file Sexual Orientation Not on file documented as of this encounter Miscellaneous Notes * Telephone Encounter - Leann Moore MA - 10/01/2024 5:17 PM EDT My chart message Hello! Not sure if you remember but you sent a referral for me back in March. I still hadn???t heard from them so I called today and they???re saying they faxed something over in April and never heard back. They resent that fax today to your office and have to have it before they will schedule me. Is there anyway you could be in the lookout for that? I appreciate it. Have a great day. documented in this encounter Plan of Treatment Not on file documented as of this encounter Visit Diagnoses Not on filedocumented in this encounter Additional Health Concerns Assessment Noted Time PHQ-2 Depression Total Score: 3 11/03/19 23 3:43 PM EDT documented as of this encounter Care Teams Unisaw Operator Relationship Specialty Start Date End Date Anne Blair DO [address] [place] [address] PCP - General Family Medicine 03/30/20 documented as of this encounter
--- OUTSIDE RECORDS SUMMARY | 2024-12-30 10:49 | XMS_ITS | Encounter Summary ---
Author Organization [facility] Address [address] [place] [address] Care Team Providers Care Elevator Repairer Helper Name Role Phone Anne Blair DO Primary Care Provider Reason for Visit * Reason Onset Date Comments Med Refill 10/01/2023 Encounter Details Date Type Department Care Team (Late st Contact Info) Description 10/01/2023 Refill [facility] [address] [place] [address] Anne Blair DO [address] [place], [place] [id number] Heart palpitations Social History Tobacco Use Types Packs/Day Years Used Date Smoking Tobacco: Former Cigarettes 0.5 13 - 2016 Passive Smoke Exposure: Past Smokeless Tobacco: Never [...] Score 9 11/02/2022 PHQ-2 Answer Date Recorded Retired PHQ-9: Brief Depression Severity Measure Score 9 11/02/2022 Comments Unknown Sex and Gender Information Value Date Recorded Sex Assigned at Female 03/27/2024 10:47 AM EST Legal Sex Female 2:52 PM EST Gender Identity Not on file Sexual Orientation Not on file documented as of this encounter Miscellaneous Notes * Telephone Encounter - [place] Nena Cortez RegSched Rep - 10/03/2023 4:25 PM EDT LEFT VOICEMAIL TO SCHEDULE APPOINTMENT HUB TO RELAY documented in this encounter Plan of Treatment Not on file documented as of this encounter Visit Diagnoses Diagnosis Heart palpitations Palpitations documented in this encounter Additional Health Concerns Assessment Noted Time PHQ-2 Depression Total Score: 3 11/03/19 23 3:43 PM EDT documented as of this encounter Care Teams Elevator Repairer Helper Relationship Specialty Start Date End Date Anne [place] [address] PCP - General Family Medicine 03/30/20 documented as of this encounter
--- OUTSIDE RECORDS SUMMARY | 2024-12-30 10:49 | XMS_ITS | Clinical Summary ---
Author Organization [facility] Address [address] [place] [address] Care Team Providers Care Lpn Per Diem Name Role Phone Anne Blair DO Primary Care Provider Allergies No known active allergies Medications * This document contains information received from the source organization and may not represent a complete record from that organization. citalopram (CeleXA) 10 MG tabletIndication s:Anxiety,Curren t moderate episode of major depressive disorder without prior episode Take 1 tablet by mouth Daily. 30 tablet 2 5 Active clotrimazole (LOTRIMIN) 1 % external solutionIndicati ons:Other infective acute otitis externa of left ear Apply 2-3 drops in left ear BID X 14 days 10 mL 5 Active ibuprofen (ADVIL,MOTRIN) 600 MG tablet Take 1 tablet by mouth Every 6 (Six) Hours As Needed for Mild Pain. 28 tablet 5 Active midodrine (PROAMATINE) 2.5 MG tabletIndication s:POTS (postural orthostatic tachycardia syndrome),Syncop e, unspecified syncope type Take 1 tablet by mouth 2 (Two) Times a Day. Use as needed systolic pressure less than 100 every 12 hours 60 tablet 5 Active doxycycline (VIBRAMYCIN) 100 MG capsuleIndicatio ns:Cellulitis of left thigh Take 1 capsule by mouth 2 (Two) Times a Day. 20 capsule 5 Active mupirocin (BACTROBAN) 2 % ointmentIndicati ons:Cellulitis of left thigh Apply 1 Application topically to the appropriate area as directed 3 (Three) Times a Day. 22 g 5 Active predniSONE (DELTASONE) 20 MG tabletIndication s:Cellulitis of left thigh Take 1 tablet by mouth 2 (Two) Times a Day. 10 tablet 5 Active ondansetron (ZOFRAN) 8 MG tabletIndication s:Nausea Take 1 tablet by mouth Every 8 (Eight) Hours As Needed for Nausea. 20 tablet 5 5 Active Active Problems No known active problems Encounters Date Type Department Care Team Description 10/01/2024 Telephone [facility] [address] [place] [address] Channing Moss PA My chart/ referral from Last 3 Months Immunizations Immunization Administration Dates Next Due HPV Quadrivalent 12/07/2006,09/26/2006 Tdap 02/06/2013 Family History Medical History Relation Name Comments Heart disease Father Dasha Heart failure Father Dasha Kidney disease Father Dasha Liver disease Father Dasha Depression Mother Patricia Relation Name Status Comments Father Dasha Alive Mother Patricia Alive Social History Tobacco Use Types Packs/Day Years Used Date Smoking Tobacco: Every Day Electronic Cigarette Passive Smoke Exposure: Past Smokeless Tobacco: Never Tobacco Cessation:Ready to Q uit: Not Asked; Counseling Given: Not Answered Comments:Vapes Alcohol Use Standard Drinks/Week Comments Never [...] on file Sexual Orientation Not on file Last Filed Vital Signs Vital Sign Reading Time Taken Comments Blood Pressure 100/60 09/10/2024 12:12 PM EDT Pulse 95 09/10/2024 12:12 PM EDT Temperature 37.2 C (99 F) 09/10/2024 12:12 PM EDT Respiratory Rate 16 04/04/2024 2:23 PM EST Oxygen Saturation 98% 09/10/2024 12:12 PM EDT Inhaled Oxygen Concentration - - Weight 52.6 kg (116 lb) 09/10/2024 12:12 PM EDT Height 165.1 cm (5' 5 ) 09/10/2024 12:12 PM EDT Body Mass Index 19.3 09/10/2024 12:12 PM EDT Plan of Treatment Health Maintenance Due Date Last Done Comments Annual Gynecologic Pelvic and Breast Exam 1992 Pneumococcal Vaccine 0-49 (1 of 2 - PCV) 04/08/2011 ANNUAL PHYSICAL 03/30/2020 TDAP/TD VACCINES (2 - Td or Tdap) 02/06/2023 014 INFLUENZA VACCINE 09/06/2024 HEPATITIS C SCREENING Completed 03/30/2020 Procedures Procedure Name Priority Date/Time Associated Diagnosis Comments HEPATITIS C ANTIBODY Routine 03/30/2020 4:08 PM EST Encounter for hepatitis C screening test for low risk patient from Last 3 Months or Most Recently Relevant to Health Maintenance Results * Hepatitis C Antibody (03/30/2020 4:08 PM EST) Hep C Virus Ab <0.1 0.0 - 0.9 s/co ratio [facility] Comment: Negative: < 0.8 Indeterminate: 0.8 - 0.9 Positive: > 0.9 The CDC recommends that a positive HCV antibody result be followed up with a HCV Nucleic Acid Amplification test ([id number]). Blood 03/30/2020 4:08 PM EST 03/30/2020 Narrative [facility] ([facility]) - 03/31/2020 8:12 AM EST Performed at: [address] [place] [address] [id number] Veterinary Receptionist: Fredrick Coy PhD, Phone: [phone] Patient Fasting: N Anne Blair DO LAB BLOOD ORDERABLES Final Result [facility] ([facility]) [address] [place] [address], [place] [phone] [facility] [address] [place] [address], [place] [phone] from Last 3 Months or Most Recently Relevant to Health Maintenance Insurance [facility] PPO Care Teams Lpn Per Diem Relationship Specialty Start Date End Date Anne Blair DO [address] [facility] [place] [address] PCP - General Family Medicine 03/30/20
== END 2024-12-29 23:59 | disposition home or self-care (01) ==
LOC: LAB.DROPOF 12-30 10:29
PROVIDERS: PCP Family Medicine; Visit Provider Nurse Practitioner
DX: N39.0 Urinary tract infection, site not specified (principal)
CPT/HCPCS: 87086; 87088